=== PATIENT | female | born 1965 | race Two or more races ===

== ENCOUNTER → 2016-10-22 | Outpatient (CLI) | payer MEDICAID | END | disposition home or self-care (01) | LOC: CFH 13:34 | PROVIDERS: ATTEND Physician Assistant Medical | DX: R07.89 Other chest pain (principal); R00.0 Tachycardia, unspecified; R06.02 Shortness of breath | CPT/HCPCS: 93306 ==

== ENCOUNTER 2019-08-10 07:31 | Emergency (ER) | payer SELFPAY ==
[~2019-08-10] VITALS: Ht 152.4 cm; Wt 75.3 kg
[2019-08-10 07:32] VITALS: BP 135/81
--- NOTE | 2019-08-10 08:34 | NUR ---
PT WITH LEFT SIDE FACIAL DROOP. SEEN BY ER MD, ASSESSMENT FOR BELLS PALSY DISCUSSED. PLAN FOR CT 2/2 TO PT CONCERNS FOR LEFT ARM INTERMITTANT TINGLING FEELING. CT COMPLETED AND PT AWARE WE ARE AWAITING RESULTS. NAD NOTED. PTS SON AT BEDSIDE TO ASSIST WITH TRANSLATION. [employer] SENIOR [employer] DEVELOPER OFFERED PT REQUESTS SON TO PROVIDE INTERPRETING.
--- NOTE | 2019-08-10 08:55 | NUR ---
Patient given discharge instructions and they have confirmed that they understand the instructions. Patient ambulatory with steady gait.
== END 2019-08-10 09:07 | disposition home or self-care (01) ==
LOC: ED 08:50
DX: G51.0 Bell's palsy (principal)
CPT/HCPCS: 70450; 93005; 99284